=== PATIENT | male | born 1980 | race African-American/Black ===

== ENCOUNTER 2016-12-12 19:35 | Emergency (ER) | payer SELFPAY ==
[~2016-12-12] VITALS: Ht 185.4 cm; Wt 95.3 kg
[2016-12-12 19:43] VITALS: BP 139/91
[2016-12-12] MEDS ORDERED: NKM (19:43)
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
[2016-12-12] MEDS: Norco 10mg/325mg tab ORAL ONE ×2 (20:45→21:00)
[2016-12-12] MEDS ORDERED: Ketorolac 60mg Inj IM ONE (20:45)
[2016-12-12] MEDS ORDERED: Morphine Sulfate 4mg/ml Inj IVP ONE ×2 (20:45→22:15)
[2016-12-12] MEDS ORDERED: Surgicel 4in x 8in TOPIC ONE (20:45)
[2016-12-12] MEDS ORDERED: ceFAZolin sod 1 GM in D5W 55 ML IVPB SCH (22:15)
[2016-12-13 01:34] VITALS: BP 139/91
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
== END 2016-12-13 01:35 | disposition short-term general hospital (02) ==
LOC: EMR 20:02
DX: S02.652A Fracture of angle of left mandible, initial encounter for closed fracture (principal); Y08.89XA Assault by other specified means, initial encounter; Y92.89 Other specified places as the place of occurrence of the external cause
CPT/HCPCS: 70486; 96372; 96374; 96375; 99285; J0690; J2270